=== PATIENT | female | born 1935 | race Caucasian/White ===

== ENCOUNTER 2020-04-16 11:42 | Outpatient (CLI) | payer MEDICARE, SELFPAY ==
--- NOTE | ~2020-04-16 | XR_ITS ---
XR chest 2V DATE: 04/16/2020 12:07 INDICATION: Atrial fibrillation TECHNIQUE: PA and lateral views COMPARISON: None FINDINGS: Heart size is at upper limits of normal. There is aortic tortuosity. No pulmonary infiltrate or consolidation, pleural effusion or pulmonary vascular congestion or pneumo thorax. Prominent diffuse osteopenia. There is moderately prominent loss of height and anterior wedging of L1. IMPRESSION: No active pulmonary disease Reviewed, dictated and finalized at location A. ER PRINTER IMPRESSION: No active pulmonary disease
== END 2020-04-16 11:43 | disposition home or self-care (01) ==
LOC: ANHBWCIMG 11:50
DX: I48.0 Paroxysmal atrial fibrillation (principal)
CPT/HCPCS: 71046

== ENCOUNTER 2021-06-28 09:56 | Outpatient (CLI) | payer MEDICARE, SELFPAY ==
--- NOTE | ~2021-06-28 | XR_ITS ---
EXAMINATION: XR chest 2V DATE: 06/28/2021 10:16 INDICATION: Pneumonia. Follow-up. TECHNIQUE: Frontal and lateral views of the chest were obtained on 3 radiographs. COMPARISON: Chest 2 views 04/16/2020 FINDINGS: There is mild atelectasis in right lower lung zone. No pleural effusion or pneumothorax. Th e heart size is normal. There is a chronic compression fracture in lumbar spine. IMPRESSION: 1. Mild atelectasis in right lower lung zone. Reviewed, dictated and finalized at location B.
== END 2021-06-28 09:57 | disposition home or self-care (01) ==
DX: J18.9 Pneumonia, unspecified organism (principal); J98.11 Atelectasis
CPT/HCPCS: 71046

== ENCOUNTER 2022-08-16 09:55 | Outpatient (CLI) | payer MEDICARE, SELFPAY ==
--- NOTE | ~2022-08-16 | XR_ITS ---
Clinical Indication: Atrial fibrillation AP and lateral views of the chest: Comparison: 06/28/2021 Findings: The lungs are clear, without evidence of focal consolidation or pleural effusion. Cardiome diastinal silhouette is within normal limits. Probable mild to moderate compression deformity of what is likely L1. Impression: Clear lungs. Probable compression fracture of L1, similar to prior exam. Reviewed, dictated and finalized at location . Impression: Clear lungs. Probable compression fracture of L1, similar to prior exam.
[2022-08-16 19:18] LABS: Alanine Aminotransferase 31 U/L (6-35); Alkaline Phosphatase 140 U/L (38-126); Anion Gap 9 mmol/L (8-16); Aspartate Amino Transferase 81 U/L (14-36); Bilirubin,Total 0.5 mg/dL (0.2-1.3); Blood Urea Nitrogen 18 mg/dL (7-17); Calcium 9.1 mg/dL (8.4-10.2); Carbon Dioxide 31 mmol/L (22-30); Chloride 100 mmol/L (98-107); Estimated Glomerular Filt Rate 59; Glucose 110 mg/dL (65-110); Potassium 4.3 mmol/L (3.4-5.0); Sodium 140 mmol/L (137-145)
== END 2022-08-16 09:56 | disposition home or self-care (01) ==
DX: I48.20 Chronic atrial fibrillation, unspecified (principal)
CPT/HCPCS: 36415; 71046; 80053